=== PATIENT | female | born 2000 | race Caucasian/White ===

== ENCOUNTER 2025-06-08 14:22 | Outpatient (RCR) | payer OTHER, SELFPAY ==
--- NOTE | ~2025-06-08 | US_ITS ---
EXAMINATION: US OB BPP wo non-stress DATE: 06/08/2025 16:34 INDICATION: Cholestasis. Third trimester . TECHNIQUE: Real-time pelvic ultrasound was performed. The interpreting radiologist was not present for the study. COMPARISON: None. FINDINGS: There is a single living fetus in vertex presentation. The placenta is fundal and not low-lying. heart rate is 144 beats per minute (bpm). Normal amniotic fluid index of 21.9 cm (5th%-95%: 8.6-24.2 cm at 33 weeks estimated gestational age) . Biophysical profile performed by the technologist: breathing (30 sec sustained breathing in 30 minutes): 2 out of 2 movement (3 gross body movements in 30 minutes): 2 out of 2 tone (one episode of wlljhub-olqtvrtco-lgpzyaa limb movement): 2 out of 2 Amniotic fluid pocket (2 cm): 2 out of 2 Total score: 8 out of 8 IMPRESSION: 1. Single living fetus in vertex presentation with heart rate of 144 bpm. 2. Biophysical profile 8 out of 8. 3. Normal amniotic fluid index of 21.9 cm Reviewed, dictated and finalized at location A.
[2025-06-08 15:56] VITALS: BP 114/64; PULSE 96
== END 2025-07-18 17:46 | disposition other institution (70) ==
LOC: ANHOBOP 14:22
PROVIDERS: Visit Provider Obstetrics & Gynecology
DX: O26.643 Intrahepatic cholestasis of pregnancy, third trimester (principal); Z3A.34 34 weeks gestation of pregnancy
CPT/HCPCS: 59025; 76819

== ENCOUNTER 2025-07-10 05:33 | Inpatient (IN) | payer OTHER, SELFPAY ==
[2025-07-10] VITALS (51 sets, daily range): BP systolic 90–167; BP diastolic 43–114; PULSE 54–103; RESP 14–20; TEMP 36.2–36.7; O2SAT 98–100; BMI 37.5
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
--- NOTE | 2025-07-10 06:12 | LDADM ---
This patient, Grace Salinas, was admitted to Labor/Delivery/Recovery 120 on 07/10/25 at 05:33. Plans for labor, pain management and were discussed with patient. Patient/family oriented to hospital policies and general routines including ID bracelet, bed and alarms, visiting hours, pain management, procedures, bathroom and other care routines, personal items, smoking policy, room service/diet and guest tray routines, infant security routines, and visiting hours. Patient/Family are encouraged to report perceived risks to care and to ask questions if they do not understand what they are told or what they should do. See OBIX for further documentation.
[2025-07-10 06:23] LABS: Hematocrit 32.3 % (37.0-47.0); Hemoglobin 10.7 g/dL (12.0-15.0); Immature Granulocyte Percent A 0.3 % (0-0.5); Lymphocytes Absolute Auto 1.97 K/mm3 (0.9-3.2); Mean Corpuscular HGB Conc 33.1 g/dl (32-36); Mean Corpuscular Hemoglobin 30.7 pg (26-34); Mean Corpuscular Volume 92.8 fl (80-100); Nucleated Red Blood Cells Absolute Auto 0.000 K/mm3 (0.0-0.012); Nucleated Red Blood Cells Perc 0.0 % (0.0-0.2); Platelet Count Result 227 k/mm3 (150-375); Red Blood Count 3.48 M/mm3 (4.2-5.4); White Blood Count 7.6 K/mm3 (4.5-10.0)
[2025-07-10] MEDS: ACETAMINOPHEN 500 MG TABLET 1000 MG PO ×3 (06:24→18:59)
[2025-07-10] MEDS: LACTATED RINGERS 1,000 ML 125 ML IV CONT (06:29)
[2025-07-10 07:23] LABS: Syphilis IgG/IgM Antibody Non-Reactive (Nonreactive)
[2025-07-10] MEDS: LACTATED RINGERS 1,000 ML 999 ML IV CONT (07:23)
[2025-07-10] MEDS: ONDANSETRON INJ 4 MG/2 ML VIAL IV PUSH (07:23)
[2025-07-10] MEDS: FAMOTIDINE 20 MG/2 ML VIAL IV PUSH (07:24)
--- NOTE | 2025-07-10 07:25 | P.HP_ITS ---
H&P: HPI History of Present Illness Date/Time: 07/10/25 07:25 Chief Complaint: Term Narrative: 25-year-old multiparous female at 39 weeks gestation with previous delivery. Agreed for repeat delivery. She understands risks, benefits, and alternatives. She has completed informed consent process is ready to proceed. The patient understands the details of the procedure. The procedure has been explained in detail. She understands the risks. She understands that injuries may occur that result in hospitalization, more surgery, and severe illness. She understands risk of hemorrhage and infection. She denies any chest pain or shortness of breath. She denies any nausea, vomiting, fever, chills. Review of Systems Review of Systems: All systems reviewed & are unremarkable except as noted in HPI and below Constitutional: Constitutional: Denies chills, Denies fatigue, Denies fever(s) and Denies weakness Eyes: Eyes: Denies blurry vision, Denies change in vision, Denies loss of peripheral vision, Denies loss of vision, Denies other visual disturbances and Denies eye pain ENT: Denies vertigo, Denies dizziness, Denies hearing loss, Denies mouth pain, Denies nasal obstruction, Denies neck mass and Denies neck pain Cardiovascular: Cardiovascular: Denies chest pain, Denies diaphoresis, Denies syncope, Denies leg edema and Denies dyspnea Respiratory: Respiratory: Denies chest congestion, Denies cough, Denies hemoptysis, Denies dyspnea and Denies wheezing Gastrointestinal: Gastrointestinal: Denies abdominal pain, Denies constipation, Denies diarrhea, Denies nausea and Denies vomiting Genitourinary: Genitourinary: Denies hematuria, Denies change in libido, Denies nocturia, Denies genital lesions, Denies flank pain and Denies urinary ur gency Musculoskeletal: Musculoskeletal: Denies abnormal gait, Denies back pain, Denies myalgias, Denies arthralgias, Denies joint swelling, Denies muscle weakness and Denies neck pain Integumentary/Breasts: Skin/Breast: Denies swelling, Denies breast pain, Denies breast mass, Denies dry skin, Denies nipple discharge, Denies unusual bruising and Denies jaundice Neurologic: Denies Neuro-related abnormal movements, Denies Abnormal speech present, Denies abnormal gait, Denies behavioral changes, Denies confusion, Denies vertigo, Denies dizziness, Denies syncope, Denies loss of vision, Denies memory loss, Denies convulsions and Denies weakness Psychiatric: Psychiatric: Denies abnormal sleep pattern, Denies behavioral changes, Denies change in libido, Denies confusion, Denies depression, Denies anhedonia and Denies memory loss Endocrine: Endocrine: Reports no additional endocrine complaints, Denies change in libido and Denies fatigue Hematologic/Lymphatic: Hematologic/Lymphatic: Reports no additional hematologic/lymphatic complaints Allergic/Immunologic: Allergic/Immunologic: Reports no additional allergic/immunologic complaints and Denies wheezing [facility] Family History Family History (Updated 07/09/25 @ 14:01 by Tootie Chinchilla RN) Other No pertinent family history Social History Social History Years smoked: 4 Smoking status: Former smoker Tobacco type: cigarettes Substance use: current Lack of Transportation: No Lack of Food: Never True Current Housing: I Have Housing Concerned About Future Housing: No Difficulty Paying Gas/Electric Bills: No Difficulty Paying for Meds: No Currently Unemployed: No Education: High School Diploma/GED Difficulty w/ Childcare or Family Care: No Spiritual care concerns: No Meds Home Medications and Allergies Home Medications ?Medication ?Instructions ?Recorded ?Confirmed ?Type vit no.95-ferrous 1 tablet PO DAILY 07/09/25 07/10/25 History fumarate 28 mg-folic acid 800 mcg tablet () ursodiol 300 mg capsule 300 mg PO BID 07/09/2507/10 History Allergies Allergy/AdvReac Type Severity Reaction Status Date / Time metoclopramide (From Reglan) Allergy Severe Vomiting Verified 07/10/25 06:15 latex Allergy Intermediate Rash Verified 07/10/25 06:15 Vital Signs Vital Signs - 24 hr 07/10/25 05:36 07/10/25 06:18 07/10/25 06:21 Temperature Pulse Rate 97 Blood Pressure 123/75 Pulse Oximetry 99 Oxygen Delivery Room Air 07/10/25 06:23 07/10/25 06:24 Temperature 97.5 F L Pulse Rate Blood Pressure Pulse Oximetry 99 Oxygen Delivery Exam Const: General: cooperative, healthy appearing, comfortable and no acute distress Orientation/consciousness: oriented to person, oriented to place and oriented to time HENMT: Head: normal to inspection Ears: external ears normal Face/Nose/Sinus: Normal external nose present and normal facial exam Face and sinus: normal facial exam Eyes: General: appearance normal, both eyes and all related structures Neck: Neck: normal visual inspection, trachea midline and supple Resp: Auscultation: clear to auscultation bilaterally, no crackles, no rales, no rhonchi and no wheezes Cardio: Rate: regular rate Rhythm: regular rhythm Heart sounds: no click, no murmurs and no rubs GI: GI Palp: No abdominal tenderness, No Soft to palpation, No Tenderness to palpation present (GI) and No Palpable mass present Auscultation: normal bowel sounds Skin: General skin exam: normal color and no rashes or lesions noted Neuro: General: oriented to person, oriented to place and oriented to time Extrem: General: normal to inspection, no joint enlargement, no clubbing, cyanosis or edema, no pedal edema and no calf tenderness Psych: Appearance: grossly normal Mental Status: mental status grossly normal Speech and movement: Normal speech and movement present H&P: Results Labs Labs: Short CBC 07/10/25 Range/Units 05:49 WBC 7.6 (4.5-10.0) K/mm3 Hgb 10.7 L (12.0-15.0) g/dL Hct 32.3 L (37.0-47.0) % Plt Count 227 (150-375) k/mm3 Assessment and Plan Assessment and plan (1) Previous section: Code(s): Z98.891 - History of uterine scar from previous surgery Status: Acute Plan 25-year-old multiparous female at 39 weeks gestation with previous delivery. Agreed for repeat delivery. She understands risks, benefits, and alternatives. She has completed informed consent process is ready to proceed.
--- NOTE | 2025-07-10 07:27 | WPDHPUPDATE1 ---
History and Physical Update Update Date/Time: 07/10/25 07:27 History and Physical has been reviewed, including an updated exam of the patient. There are NO changes in the patient's condition. Risks, benefits, and alternatives have been discussed and questions answered. Patient agrees to proceed with procedure.
--- NOTE | 2025-07-10 07:30 | WPDANESEPPF ---
Anes - Initial Pre Proc Eval Procedure: Operation Date: 07/10/25 07:30 Proposed Procedures p Repeat Section - Isaiah Shultz MD Date/Time: 07/10/25 07:30 Surgeon: Isaiah Shultz MD Pre Op Diagnosis: Patient Data Age: 25 Gender: F Height: 1.57 m Weight: 93.2 kg Last Vital Signs Temp 97.5 F L 07/10/25 06:24 Pulse 97 07/10/25 06:21 BP 123/75 07/10/25 06:21 Pulse Ox 99 07/10/25 06:23 O2 Del Method Room Air 07/10/25 05:36 Allergies Allergy/AdvReac Type Severity Reaction Status Date / Time metoclopramide (From Reglan) Allergy Severe Vomiting Verified 07/10/25 06:15 latex Allergy Intermediate Rash Verified 07/10/25 06:15 Home Medications ?Medication ?Instructions ?Recorded ?Confirmed ?Type vit no.95-ferrous 1 tablet PO DAILY 07/09/25 07/10/25 History fumarate 28 mg-folic acid 800 mcg tablet () ursodiol 300 mg capsule 300 mg PO BID 07/09/25 07/10/25 History Laboratory Tests 07/10/25 05:49 WBC 7.6 K/mm3 (4.5-10.0) RBC 3.48 L M/mm3 (4.2-5.4) Hgb 10.7 L g/dL (12.0-15.0) Hct 32.3 L % (37.0-47.0) MCV 92.8 fl (80-100) MCH 30.7 pg (26-34) MCHC 33.1 g/dl (32-36) RDW 12.9 % (11.5-14.5) Plt Count 227 k/mm3 (150-375) MPV 8.5 fl (7.4-10.4) Immature Gran % (Auto) 0.3 % (0-0.5) Neut % (Auto) 66.0 % (45.5-73.1) Lymph % (Auto) 26.0 % (18.3-44.2) [place] % (Auto) 6.6 % (2.6-8.5) Eos % (Auto) 0.8 % (0-4.4) Baso % (Auto) 0.3 % (0.2-1.2) Lymph # (Auto) 1.97 K/mm3 (0.9-3.2) [place] # (Auto) 0.5 K/mm3 (0.1-0.6) Eos # (Auto) 0.1 K/mm3 (0-0.3) Baso # (Auto) 0.0 K/mm3 (0.0-0.1) Abs Immat Gran (auto) 0.02 K/mm3 (0.00-0.031) Absolute Neuts (auto) 5.0 K/mm3 (1.3-6.7) Absolute Nucleated RBC 0.000 K/mm3 (0.0-0.012) Nucleated RBC % 0.0 % (0.0-0.2) Syphilis IgG/IgM Ab Non-reactive (Nonreactive) Blood Type A Positive Antibody Screen Negative Patient hx anesthesia problems: none Family hx anesthesia problems: none Results Review: All pre-operative results and documents have been reviewed as part of the pre-operative evaluation. [facility] Family History Family History Other No pertinent family history Social History Social History Years smoked: 4 Smoking status: Former smoker Tobacco type: cigarettes Substance use: current Lack of Transportation: No Lack of Food: Never True Current Housing: I Have Housing Concerned About Future Housing: No Difficulty Paying Gas/Electric Bills: No Difficulty Paying for Meds: No Currently Unemployed: No Education: High School Diploma/GED Difficulty w/ Childcare or Family Care: No Spiritual care concerns: No Anes - Eval Final PreProcedure Day of Procedure 07/10/25 07:30 Patient weight: obese Lungs: normal air movement Airway: Mallampati scale class II Neurological: alert and oriented Last oral intake: >/= 8 hours ASA classification: II Emergent: no Anesthetic plan: proceed Anesthesia type and monitoring: regional spinal and standard monitoring Results Review: All pre-operative results and documents have been reviewed as part of the pre-operative evaluation. Plts normal. Informed Consent: The patient's anesthetic plan and its attendant risks and benefits were discussed with the patient/family/POA. Questions were solicited and answers provided to the satisfaction of the patient/family/POA.
[2025-07-10] MEDS: ceFAZolin 2 GM in SODIUM CHLORIDE 0.9% IV 50 ML 100 ML IVPB (07:35)
--- NOTE | 2025-07-10 08:37 | W.PM.OBCSD ---
OB - Delivery Note Procedure Delivery date: 07/10/25 Pre-op diagnosis: Previous Delivery Post-op Diagnosis: Same Procedure Performed: Repeat and Other Surgeon: Isaiah Shultz MD Anesthesia type: Spinal Description of Procedure/Findings: The patient was taken the operating room.? She was prepped and draped in dorsal supine position with a leftward tilt.? This was done after spinal anesthetic was applied.? A low-transverse skin incision was made and carried down till of the fascia with the knife.? The fascial incision was made with the knife.? The fascial incision was extended laterally with Prajapati scissors.? The fascia was tented upward superiorly and inferiorly the rectus muscles were dissected off bluntly.? The rectus muscles were the midline.? The preperitoneal fat and peritoneum were dissected open bluntly at the superior aspect of the rectus muscles.? The peritoneal incision was extended superior and inferior with good position of bladder.? The uterine incision was made with a scalpel down to the level of the amniotic cavity.? The amniotic cavity was entered bluntly.? The infant was delivered.? The cord was clamped and cut and the infant was handed off to waiting pediatric staff.? Cord bloods were obtained.? The placenta was removed manually.? The uterus was exteriorized.? The uterus was cleared of all clots, debris and membranes.? The uterus was closed in 0 Vicryl running lock fashion.? An imbricating over a was placed along the incision line as well.? The uterus was returned to the abdomen.? The gutters were cleared of all clots and debris.? The fascia was closed with 0 Vicryl running fashion.? The subcutaneous tissue was irrigated pinpoint bleeders were cauterized.? The skin was closed with subcuticular absorbable liudmila.? The skin incision line was covered with glue.? The patient tolerated the procedure well.? She has taken recovery room in stable condition.? Sponge lap and needle counts were correct x2.? Estimated Blood Loss: 400 Pathology: None sent Complications: No immediate complications Condition: Stable Disposition: Floor
[2025-07-10] MEDS: KETOROLAC 15 MG/ML VIAL (*BKC) IV PUSH ×3 (08:59→19:00)
[2025-07-10] MEDS: LIDOCAINE 5% PATCH 1 PATCH TRANSDERM (09:16)
[2025-07-10] MEDS: OXYTOCIN 30 UNITS/NS 500 ML 30 UNITS/500 ML BAG 125 UNITS IV CONT (10:54)
[2025-07-10] MEDS: SIMETHICONE 80 MG TAB.CHEW PO ×2 (12:59→19:00)
[2025-07-10] MEDS: DEXTROSE 5%/0.45% SOD CHL 1,000 ML 125 ML IV CONT (15:21)
--- NOTE | 2025-07-10 16:40 | PC.NURSE ---
1520. Breast pump provided due to level 2. Instructions given on cleaning, care, usage, that there should be no pain, pumping schedule for milk production, collection, and storage of human milk. Patient was assessed for correct placement, flange size, to pump for comfort and nipple stretching/stimulation for adequate milk production every 3 hours (8 times in 24 hours) 1-2 times at night. Parents are encouraged to record the pumping schedule on the feeding sheet.?Mother voiced understanding of the education shared along with mom/baby guide and the pump measurement, flange fit handout for additional resource information. Reported to the Primary RN.
[2025-07-10] MEDS: DOCUSATE SODIUM 100 MG CAPSULE PO (19:00)
[2025-07-11] MEDS: KETOROLAC 15 MG/ML VIAL (*BKC) IV PUSH (00:52)
[2025-07-11] MEDS: ACETAMINOPHEN 500 MG TABLET 1000 MG PO ×4 (00:52→21:37)
[2025-07-11 03:55] VITALS: BP 114/68; PULSE 71; RESP 16; TEMP 36.4; O2SAT 99
[2025-07-11 04:36] LABS: Hematocrit 29.7 % (37.0-47.0); Hemoglobin 9.5 g/dL (12.0-15.0); Immature Granulocyte Percent A 0.3 % (0-0.5); Lymphocytes Absolute Auto 2.03 K/mm3 (0.9-3.2); Mean Corpuscular HGB Conc 32.0 g/dl (32-36); Mean Corpuscular Hemoglobin 30.1 pg (26-34); Mean Corpuscular Volume 94.0 fl (80-100); Nucleated Red Blood Cells Absolute Auto 0.000 K/mm3 (0.0-0.012); Nucleated Red Blood Cells Perc 0.0 % (0.0-0.2); Platelet Count Result 240 k/mm3 (150-375); Red Blood Count 3.16 M/mm3 (4.2-5.4); White Blood Count 7.2 K/mm3 (4.5-10.0)
--- NOTE | 2025-07-11 07:12 | P.PNOB_ITS ---
OB - PN: Subj Subjective Date/time seen: 07/11/25 07:12 Interval history: pp day 1 c/s doing well urinating w/o difficulty passing flatus OB - PN: Obj Data Labs 07/11/25 03:59 Labs: Laboratory Results - last 24 hr 07/10/25 07/11/25 05:49 03:59 WBC 7.2 RBC 3.16 L Hgb 9.5 L Hct 29.7 L MCV 94.0 MCH 30.1 MCHC 32.0 RDW 12.9 Plt Count 240 MPV 9.1 Immature Gran % (Auto) 0.3 Neut % (Auto) 64.1 Lymph % (Auto) 28.2 [place] % (Auto) 6.8 Eos % (Auto) 0.3 Baso % (Auto) 0.3 Lymph # (Auto) 2.03 [place] # (Auto) 0.5 Eos # (Auto) 0.0 Baso # (Auto) 0.0 Abs Immat Gran (auto) 0.02 Absolute Neuts (auto) 4.6 Absolute Nucleated RBC 0.000 Nucleated RBC % 0.0 Syphilis IgG/IgM Ab Non-reactive Rubella IgG Antibody Cancelled Blood Type A Positive Antibody Screen Negative OB - PN A/P Plan day: 1 Plan: routine care Time Spent With Patient Time: Total time spent is greater than 50% in coordination of care (as documented) at patient's floor/unit and/or counseling patient: Review of Systems 2 Review of Systems: All systems reviewed & are unremarkable except as noted in HPI and below Exam 2 Const: General: cooperative, healthy appearing and comfortable Chest: Chest palpation & inspection: normal inspection of the chest Resp: Effort & Inspection: normal respiratory effort GI: Other: incision CDI Back/Spine/Pelvis: Back: no CVA tenderness Skin: General skin exam: normal color Extrem: General: normal to inspection
[2025-07-11 07:20] VITALS: BP 140/83; PULSE 87; RESP 18; TEMP 36.8; O2SAT 100
--- NOTE | 2025-07-11 08:21 | PC.NURSE ---
On 07/11/25, the student, Valencia Fraire, provided care and completed [facility] documentation on this patient. I have reviewed the student's documentation and agree with the findings.
[2025-07-11] MEDS: DOCUSATE SODIUM 100 MG CAPSULE PO ×2 (08:58→15:22)
[2025-07-11] MEDS: IBUPROFEN 600 MG TABLET PO ×3 (08:59→21:38)
[2025-07-11] MEDS: SIMETHICONE 80 MG TAB.CHEW PO ×4 (09:04→19:36)
[2025-07-11] MEDS: MULTIVIT/MIN/PREN/FOL AC/IRON TABLET 1 TAB PO (09:06)
--- NOTE | 2025-07-11 11:51 | WPDANLDNPN2 ---
Anes-Prog Note L&D-Neuraxial Date/Time: 07/11/25 11:51 Patient feedback: Patient satisfied with post-operative pain management.
--- NOTE | 2025-07-11 11:51 | WPDANLDPN2 ---
Anes-Prog Note L&D Date/Time: 07/11/25 11:51 Neuro status: Neuro function grossly intact. Cardiovascular status: normal Respiratory status: normal Airway patency: baseline Mental status: baseline Post-Op hydration status: normal Vital Signs: Last Vital Signs Temp 36.8 C 07/11/25 07:20 Pulse 87 07/11/25 07:20 Resp 18 07/11/25 07:20 BP 140/83 07/11/25 07:20 Pulse Ox 100 07/11/25 07:20 O2 Del Method Room Air 07/10/25 19:15 Pain score (VAS): 0 I/O: Intake & Output 07/10/25 07/11/25 07/11/25 23:59 07:59 15:59 Intake Total 570.8 400 240 Output Total 900 Balance -329.2 400 240 Post-procedural complaints: none Patient feedback: Patient satisfied with anesthetic care.
[2025-07-11 19:23] VITALS: BP 114/75; PULSE 90; RESP 16; TEMP 36.7; O2SAT 100
[2025-07-11] MEDS: LIDOCAINE 5% PATCH 1 PATCH TRANSDERM (19:36)
[2025-07-12] MEDS: IBUPROFEN 600 MG TABLET PO ×2 (03:11→09:29)
[2025-07-12] MEDS: ACETAMINOPHEN 500 MG TABLET 1000 MG PO ×2 (03:11→09:30)
[2025-07-12 07:55] VITALS: BP 106/69; PULSE 80; RESP 18; TEMP 36.4; O2SAT 98
[2025-07-12 08:15] VITALS: PULSE 80; RESP 18; O2SAT 98
[2025-07-12] MEDS: SIMETHICONE 80 MG TAB.CHEW PO ×2 (08:21→12:35)
[2025-07-12] MEDS: MULTIVIT/MIN/PREN/FOL AC/IRON TABLET 1 TAB PO (08:21)
[2025-07-12] MEDS: DOCUSATE SODIUM 100 MG CAPSULE PO (08:21)
--- NOTE | 2025-07-12 08:44 | PCCCNOTE ---
Wax Pot Tender met with patient at bedside. Patient was present holding her baby girl while speaking with CC. Patient's significant other was also present in the room. Patient reports this being her 4th child. Patient reports having children ages 7, 4, 2 and now a . Patient reports having everything she needs at home for the , listed as diapers, bassinet and other simple items. Patient reports breast feeding at this time but may later try formula. Patient reports no DCFS history or involvement. Patient reports already having an established PCP through Dr. Werner. Patient and significant other reports having plenty of family support on both sides of the family. Patient was alert and oriented X's 4. Patient reports a history in the past of THC use but none recent with or while . Patient denies previous substance treatment as well. There are no other concerns at this time with patient and baby. cellar worker will sign off at this time.
--- NOTE | 2025-07-12 13:04 | P.DS_ITS ---
DS: Admitting Diagnosis Discharge Date 07/12/2025 Admitting Diagnosis Term DS: Discharge Diagnosis Discharge Diagnosis (1) Previous section: Code(s): Z98.891 - History of uterine scar from previous surgery Status: Acute OB - DS: Summary OB Procedures : None OB Procedures Intrapartum: OB Procedures: : None Peripartum Data Procedures: Procedures Operation Date: 07/10/25 07:30 Actual Procedure Side Surgeon p Repeat Section Not Applicable Isaiah Shultz MD Time Spent with Patient Time attestation: Total time spent providing and/or coordinating discharge services: Discharge Plan Discharge Discharging Clinician: Isaiah Shultz Patient Disposition: Home Activity: pelvic rest Diet: regular Patient Instructions: Antibiotic Form Patient Language: Polish Stand Alone Forms: General Discharge Information Follow-up/Referrals: Isaiah Shultz MD [Physician, BRUSH LOADER AND HANDLE ATTACHER] Discharge Medications: New hydrocodone-acetaminophen 5-325 mg tablet 1 - 2 tablet PO Q6H PRN (Reason: pain) Qty: 25 0RF Continued PNV no.95-ferrous fumarate-FA [] 28 mg iron- 800 mcg tablet 1 tablet PO DAILY Discontinued ursodiol 300 mg capsule 300 mg PO BID Date of admission: 07/10/25 05:33 Primary Care Provider: UNKNOWN,DOCTOR Admitting Provider: Isaiah Shultz Attending physician on admission: Isaiah Shultz Condition: Stable
--- NOTE | 2025-07-12 13:04 | P.PNOB_ITS ---
OB - PN: Subj Subjective Date/time seen: 07/12/25 13:04 Interval history: pp day 1 c/s doing well urinating w/o difficulty passing flatus Patient comments: no complaints, pain well controlled, incisional pain, tolerating diet and flatus present OB - PN: Obj Data Labs 07/11/25 03:59 OB - PN A/P Plan day: 2 Plan: routine care Comments: POD#2 LTCS - no problems, Time Spent With Patient Time: Total time spent is greater than 50% in coordination of care (as documented) at patient's floor/unit and/or counseling patient: Exam 2 Const: General: comfortable, no acute distress and alert Resp: Effort & Inspection: normal respiratory effort Auscultation: no crackles, no rales and no rhonchi Cardio: Rate: regular rate Heart sounds: no click, no murmurs and no rubs GI: Inspection: non-distended Auscultation: normal bowel sounds Other: Incision - CDI Extrem: General: normal to inspection, no pedal edema and no calf tenderness
== END 2025-07-12 15:35 | disposition home or self-care (01) | DRG 540 ==
LOC: ANHLDR 05:35 → ANHOB2 11:32
PROVIDERS: Admitting Provider Obstetrics & Gynecology; Visit Provider Obstetrics & Gynecology
PROC: 10D00Z1 Extraction of Products of Conception, Low, Open Approach (ICD-10-PCS; CPT 59514; principal; 2025-07-10 07:30)
DX: O26.643 Intrahepatic cholestasis of pregnancy, third trimester (principal); Z37.0 Single live birth; Z3A.37 37 weeks gestation of pregnancy; O34.211 Maternal care for low transverse scar from previous cesarean delivery; O99.323 Drug use complicating pregnancy, third trimester; F19.90 Other psychoactive substance use, unspecified, uncomplicated
CPT/HCPCS: 36415; 85025; 86593; 86762; 86850; 86900; 86901; J0690; A9270; J1200; J1885; J2274; J2405; J2590; J3480; J7120

== ENCOUNTER 2025-08-22 02:14 | Day surgery (SDC) | payer OTHER, SELFPAY ==
--- NOTE | 2025-08-14 15:28 | SUR.PREOP ---
[facility] has started construction of its new state of the art ER which will open Spring 2026. With this, we anticipate parking may be a challenge for some our surgical patients and families. Parking spaces are limited but are available for all Surgical, obstetrics, and ER patients sharing this lot. If you arrive and find you are having a hard time finding a parking space, please note that we understand the challenges, please drive around the hospital and park near Hospital Entrance 1. When you enter this entrance, you can ask a volunteer to direct or take you back to the surgical waiting area to check in. We appreciate everyone?s understanding of these expected challenges while we build for your future. Report to the Outpatient Waiting Room, entrance under the green pavilion located off [address], at time __10AM___ on date _08/22/25__. Planned Procedure Time: __12PM___.? Time changes happen often and if your time is changed the preop area will call you the afternoon before. - You and your visitor will be asked to self-screen and do not enter if you have any COVID symptoms. Please call surgeon if you need to reschedule. - A mask is optional within the hospital at this time. Patients may have clear liquids (water, carbonated beverages, clear teas, apple juice) until 3 hours prior to surgery with a maximum of 20 ounces. - No food from midnight until time of surgery and no smoking, or chewing tobacco (or any form of nicotine). No chewing gum, candy or mints. Take only the following medications with a SIP of water on the morning of surgery: ___hydrocodone/acetaminophen if needed____ DO NOT STOP ANY OF YOUR OTHER PRESCRIPTION MEDICATIONS PRIOR TO SURGERY EXCEPT THE FOLLOWING Hold all vitamins and supplements for 3 days per anesthesiologist. Medications to discontinue per physician __n/a___ Date to take last dose of vitamins_08/18/25_ Please no make-up, nail lebanese, hairspray, perfume, deodorant, or body powder the day of surgery.? No jewelry (including any body piercings) or valuables the day of surgery, leave them at home.? Please take a shower or bath the night before, or the morning of, surgery with an antibacterial soap.? Wear comfortable, loose fitting clothing.? - Jewelry must be removed prior to entering the operating room.? Rings and piercings that are not removed may be cut off. - The hospital will not accept responsibility for valuables.? - Please leave all valuables, including medications, at home the day of surgery. If you are going home after surgery, a licensed pile driver operator must drive you home.? - NO public transportation without another adult if you receive anesthesia. - We recommend that an adult stay with you for 24 hours following discharge. - We also recommend that you do not drive, make important decision, drink alcoholic beverages, or take any drugs that were not prescribed by your health care provider for at least 24 hours after your discharge time. Follow any additional instructions given to you from your surgeon. Telephone instructions given to __Grace___and asked if any additional questions and then verbalized understanding. Patient advised to call surgeon office or pre surgery nurse liaison [phone] if any additional questions.
[2025-08-14 15:31] VITALS: BMI 36.6
--- NOTE | 2025-08-22 | S_PTH ---
PATIENT: Grace Salinas LOC: [facility] U#:[id number] AGE/SX: 25/F ROOM: RE08/22/[address]: Isaiah Shultz MD : 2000 BED: DIS: 08/22/2025 SPEC #: [id number] RECD: 08/22/25 13:21 STATUS: JUSTO REQ #: [id number] CHAYITO: 08/22/25 00:[address]: Isaiah Shultz DEPT: [facility] Surgical RECD BY: Zhane Ruiz Tissues: A - Fallopian Tube Bilateral Procedures: Gross and Microscopic Level 2 Hematoxylin and Eosin Stain
--- OUTSIDE RECORDS SUMMARY | 2025-08-22 02:17 | XMS_ITS | Encounter Summary ---
Author Organization [facility] Address [address] [place] [address] Care Team Providers Care Building Architect Name Role Phone Unavailable Primary Care Provider Unavailabl e Encounter Details Date Type Department Care Team (Late st Contact Info) Description 08/29/2020 Lab Requisition CLINICAL PATH LAB [address] [place] [address] Lorenzo Rockwell MD [address] [place] [address] Amenorrhea, unspecified Social History Tobacco Use Types Packs/Day Years Used Date Smoking Tobacco: Never Assessed Comments Unknown Sex and Gender Information Value Date Recorded Sex Assigned at Not on file Legal Sex Female 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 Gender Identity Not on file Sexual Orientation Not on file documented as of this encounter Plan of Treatment Not on file documented as of this encounter Procedures Procedure Name Priority Date/Time Associated Diagnosis Comments HCG, QUANTITATIVE Routine 08/29/2020 1:4 5 PM AUTO BODY SERVICE MECHANIC Amenorrhea, unspecified documented in this encounter Results * (ABNORMAL) HCG, quantitative (08/29/2020 1:45 PM AUTO BODY SERVICE MECHANIC) HCG, SERUM 31,853(H) <5 MIU/ML 08/30/2020 1:42 AM AUTO BODY SERVICE MECHANIC [facility] Comment: MALES AND NON FEMALES: <5 mIU/ml WEEKS GESTATION 0 TO 1 5 TO 50 mIU/ml 1 TO 2 50 TO 500 mIU/ml 2 TO 3 100 TO 5,000 mIU/ml 3 TO 4 500 TO 10,000 mIU/ml 4 TO 5 1,000 TO 50,000 mIU/ml 5 TO 6 10,000 TO 100,000 mIU/ml 6 TO 8 15,000 TO 200,000 mIU/ml 8 TO 12 10,000 TO 100,000 mIU/ml 2nd TRIMESTER 5,000 TO 30,000 mIU/ml 3rd TRIMESTER 5,000 TO 15,000 mIU/ml New reference interval implemented September 06, 2014 due to assay standardization to the World Health Organization (WHO) 5th International Standard for chorionic gonadotropin. Blood Venous blood specimen / Unknown 08/29/2020 1:45 PM AUTO BODY SERVICE MECHANIC 08/30/2020 12:46 AM AUTO BODY SERVICE MECHANIC us Lorenzo Rockwell MD LAB BLOOD ORDERABLES Final Resu lt [facility] [address] [address] ([facility]) [place] [address] documented in this encounter Visit Diagnoses Diagnosis Amenorrhea, unspecified documented in this encounter
--- OUTSIDE RECORDS SUMMARY | 2025-08-22 02:17 | XMS_ITS | Clinical Summary ---
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 Gender Identity Not on file Sexual Orientation Not on file Plan of Treatment Health Maintenance Due Date Last Done Comments HPV Vaccines (1 - 3-dose series) 2014 DTaP,Tdap,and Td Vaccines (1 - Tdap) 2018 Hepatitis B Vaccines (1 of 3 - 19+ 3-dose series) 2018 Cervical Cancer Screening 2020 COVID-19 Vaccine (1 - 2024-2 6 season) 2025 Influenza Vaccine (#1) 2025 Zoster Vaccines (1 of 2) 2049 RSV Vaccine 60+ and Patients (1 - 1-dose 75+ series) 2074 HIB Vaccines Aged Out No longer eligi ble based on patient's age to complete this topic Hepatitis A Vaccines Aged Out No long er eligible based on patient's age to complete this topic IPV Vaccines Aged Out No longer eligi ble based on patient's age to complete this topic Meningococcal ACWY Vaccine Aged Out N o longer eligible based on patient's age to complete this topic Meningococcal B Vaccine Aged Out No l onger eligible based on patient's age to complete this topic Pneumococcal Vaccine: Pediat rics (0 to 5 Years) and At-Risk Patients (6 to 49 Years) Aged Out No longer eligible b ased on patient's age to complete this topic RSV Pediatric <20 Months Aged Out No longer eligible based on patient's age to complete this topic
--- OUTSIDE RECORDS SUMMARY | 2025-08-22 02:17 | XMS_ITS | Data Portability ---
Author Organization [facility] [place] Address [address] [place] [address] Assessment No assessment recorded. Plan of Treatment Reminders Order Date Submit Date Provider Last Modified By Organization Details Last Modified Time Details Appointments SURG Salpingec terese 2024 10:30A Jorge L CORDERO MD Not available Not available Not available SURG POST OP 2024 10:30A Jorge L CORDERO MD Not available Not available Not available Lab None recorded. Referral None recorded. Procedures None recorded. Surgeries None recorded. Imaging non-stres s test 2024 025 [email or web address] [facility], [address], [place], [address], 07/06/2025 16:34:16 US, obstetric , follow-up 2024 025 [email or web address] [facility], [address], [place], [address], 07/09/2025 18:29:15 US, obstetric , biophysic al profile + non-stres s test 2024 025 [facility], [address], [place], [address], 07/07/2025 09:21:01 Medication Orders None recorded. Patient TargetsNo targets recorded. Patient InstructionsNo instructions recorded. Reason for Referral None Reported. Results Created Date Observation Date Name Description Value Unit Range Abnormal Flag Note LastModifiedBy Organization Detail LastModifiedTime 06/29/20 25 06/29/2025 BILE ACIDS , TOTAL bile acids, total 4 umol/ L 0-10 Test Perfo rmed by: Mark arroyo rn [facility] [address] [place] [address] Not Available [facility] (Lab) [address] [facility], [place], [address], 07/02/2025 14:56:37 06/29/2006/29/2025 CULTU RE: GROUP B STREP SCREE N, REFLE X SUSCE PTIBI LITY result report SEE RESULT S BELOW Test: Cultu re: Group B Strep , Refle x Susce ptibi lity ([facility]/ [facility] ) Speci men Sourc e: Vagin a/Rec rebecca Speci men Type: Vagin al/Re ctal Speci men Date: 2024 1311 Resul t Date: 2024 1353 Resul t Statu s: Final resul t Abnor mal: No Resul ting Lab: [facility] [address] [facility] [address] Tel: CULTU RE ----- ----- ----- --- No Group B strep isola sylwia at 2 days (tripp ctive broth enhan cemen t) Not Available [facility] (Lab) [address] [facility], [place], [address], 07/02/2025 14:56:38 06/08/20 25 non-s tress test No observ ation record ed. [facility] [address], [place], [address], 06/08/2025 09:35:42 06/08/2006/08/2025 US, obste tric, follo w-up No observ ation record ed. [address], [place], [address], 06/12/2025 09:04:42 0806/08/2025 non-s tress test No observ ation record ed. [email or web address] Not Available 2024 12:06:00 06/15/2006/15/2025 non-s tress test No observ ation record ed. [email or web address] [facility] [address], [place], [address], 06/15/2025 22:55:30 06/15/2006/15/2025 US, obste tric, follo w-up No observ ation record ed. [facility] [address], [place], [address], 06/15/2025 17:05:10 06/15/2006/15/2025 US, obste tric, bioph ysica l profi le + non-s tress test No observ ation record ed. [facility] [address], [place], [address], 06/15/2025 17:05:21 06/15/20 25 06/15/2025 US, obste tric, follo w-up No observ ation record ed. [email or web address] [address], [place], [address], 06/19/2025 15:25:51 06/22/20 25 06/22/2025 US, obste tric, bioph ysica l profi le + non-s tress test No observ ation record ed. [email or web address] [address], [place], [address], 06/25/2025 10:51:52 06/22/2006/22/2025 US, obste tric, bioph ysica l profi le + non-s tress test No observ ation record ed. [facility] [address], [place], [address], 06/22/2025 17:22:27 06/27/20 25 06/27/2025 non-s tress test No observ ation record ed. [address], [place], [address], 06/27/2025 12:09:10 06/27/20 imagi ng/di agnos tic resul t No observ ation record ed. SULEMAN Not Available 2024 11:02:05 06/29/2006/29/2025 US, obste tric, follo w-up No observ ation record ed. [email or web address] [address], [place], [address], 07/03/2025 06:56:13 06/29/2006/29/2025 US, obstgardenia tric, bioph ysica l profi le + non-s tress test No observ ation record ed. [email or web address] [address], [place], [address], 06/29/2025 17:08:26 06/29/2006/29/2025 non-s tress test No observ ation record ed. [address], [place], [address], 06/29/2025 17:55:01 06/29/20 non-s tress test No observ ation record ed. [address], [place], [address], 06/29/2025 17:55:02 07/06/20 25 07/06/2025 US, obste tric, follo w-up No observ ation record ed. [email or web address] [address], [place], [address], 07/10/2025 19:00:48 07/06/20 25 07/06/2025 US, obste tric, follo w-up No observ ation record ed. [facility] [address], [place], [address], 07/06/2025 16:55:33 07/06/20 25 07/06/2025 US, obste tric, bioph ysica l profi le + non-s tress test No observ ation record ed. [facility] [address], [place], [address], 07/06/2025 16:55:43 07/06/20 25 07/06/2025 non-s tress test No observ ation record ed. [facility] [address], [place], [address], 07/09/2025 23:21:25 07/06/20 non-s tress test No observ ation record ed. [email or web address] [facility] [address], [place], [address], 07/09/2025 23:21:25 Result Notes None recorded. Problems Name Problem SNOMED Code Status Onset Date Resolution Date Notes Provider Name and Address Organization Details Recorded Time 39139562 Completed 202407/18/2025 Ilsa Tyler [facility] 18:08:06 Past history of section 299544437 Completed 2024 X3 Isaiah Cordero MD [address], [place], [address], [facility] 16:40:44 Cholestas is of 696227595 Completed 2024 Isaiah Cordero MD [address], [place], [address], [facility] 11:27:49 Problem Notes None recorded. Procedures Surgical History Date Name Laterality Status Provider Name and Address Organization Details Recorded Time 5 SECTION (SURG) completed [facility] 07/17/2025 11:09:12 5 SECTION (SURG) completed [facility] 07/17/2025 11:09:01 2 Caesarean Section completed [facility] 02/12/2025 16:02:04 1 Caesarean Section completed [facility] 02/12/2025 16:01:57 8 Caesarean Section completed [facility] 02/12/2025 16:01:41 Imaging Results None recorded. Procedure Notes None recorded. Medical Equipment None Reported. Allergies Allergen ID Allergen Name Allergen Category Reaction Reaction Severity Criticality Documentation Date Start Date Code Code System Note Provider Name and Address Organization Details Recorded Time 34606 Reglan medicatio n dizziness other vomiting moderate moderate severe high 06/20/2025 9230 RxNorm nancy , viktoriya heade d , sever e vomit ing ,clam my Ghada Valeriano [facility] 5 10:51:25 Medications Name Sig Start Date Stop Date Status Note LastModified by Organization Details LastModified Time amoxicillin 500 mg capsule TAKE ONE CAPSULE FOUR TIMES DAILY FOR 7 DAYS 05/11 completed Not Available Not Available Not Available triamcinolo ne acetonide 0.5 % topical cream APPLY thin layer TO THE affected AREA topically TWICE DAILY 08/13 completed Not Available Not Available Not Available hydrocodone 5 mg-acetamin ophen 325 mg tablet TAKE 1 TO 2 TABLETS BY MOUTH EVERY 6 HOURS NEEDED FOR PAIN 08/13 completed Not Available Not Available Not Available ursodiol 300 mg capsule TAKE ONE CAPSULE BY MOUTH TWICE DAILY 08/13 completed Not Available Not Available Not Available Vitals Date Recorded Body weight Body weight Body mass index (BMI) Body height Systolic And Diastolic Systolic And Diastolic Provider Name and Address Organization Details Last Updated DateTime 5 51503.4 3585 g 96537.4 3585 g 38.1 kg/m2 156.21 cm 104/69 mm[Hg] 104/69 mm[Hg] Dorothy Langston [facility] 16:24:26 Date Recorded Body height Body mass index (BMI) Body weight Systolic And Diastolic Provider Name and Address Organization Details Last Updated DateTime 07/18/2025 156.21 cm 36.2 kg/m2 47752.51 g 139/89 mm[Hg] Ilsa Tyler [facility] 07/18/2025 18:07:01 Date Recorded Body height Body mass index (BMI) Body weight Systolic And Diastolic Provider Name and Address Organization Details Last Updated DateTime 08/13/2025 156.21 cm 37.2 kg/m2 69897.47 g 117/78 mm[Hg] Berkley Jamiler [facility] 08/13/2025 14:27:57 Social History Question Answer Notes LastModified by Organizat ion Details LastModified Time In The 14 Days Before Symptom Onset, Have You Had Close Contact With A Laboratory-confirmed COVID-19 While That Case Was Ill? No Information not available 02/12/2025 In The 14 Days Before Symptom Onset, Have You Had Close Contact With A Person Who Is Under Investigation For COVID-19 While That Person Was Ill? No Information not available 02/12/2025 Have You Been To An Area Known To Be High Risk For COVID-19? No Information not available 02/12/2025 Sex: Unknown Functional Status None recorded. Mental Status None recorded. Family History Relationship Description Onset Age of this Age Resolved Age Notes LastModified by Organization Details LastModified Time Father No current problems or disability Not available 02/12 16:01:02 Mother No current problems or disability Not available 02/12 16:01:02 Medical History Condition Response Allergies (Food, seasonal, environmental ) N Other N Drug/Latex Allergies/Reactions N Breast Cancer N Blood Transfusion N Lung Disease N Dermatologic Disorders N Defects or Inherited Disease N Breast Problem N Gestational Diabetes N Hematologic disorders N Anesthesia Complications N History of STI N Deep Vein Thrombosis N Polycystic ovary syndrome N Anxiety Disorder N Autoimmune disease N Arthritis N Polyps N Infertility N History of abnormal pap N Acid Reflux (GERD) N Cancer N Varicosities N Stroke N Neurologic/Epilepsy N Endometriosis N High Cholesterol N Headaches N Fibromyalgia N Kidney Disease N Heart Problems N Thyroid Problems N Kidney or Bladder Problems N GI Problems N Eating Disorder N Anemia N Art (IVF or FET) N Psychiatric Illness N Ovarian Cancer N Diabetes N Pulmonary (TB, Asthma) N Hepatitis/Liver Disease N No Past Medical History Y Eczema N Urinary Tract Infection N Abuse/Domestic Violence N Asthma N Trauma/Violence N Depression/ depression N Heart Disease N Pre-Eclampsia N Hypertension N Osteoporosis N Thrombophilias N Gynecological History Statement/Question Response Abnormal Pap N Flow Light Date of LMP 10/18/2024 Was last menstrual period normal Y STIs/STDs N HPV Vaccine N Current Control Method None Are cycles usually normal Y Sexually Active? Y Menses Monthly Y Age of first menstrual cycle 11 Sexual Problems? N Desired Control Method Sterilizati on LMP Approximate Obstetrics History GPAL:G 5 P 4 0 1 4 Type Value Full Term 4 Spontaneous 1 Living 4 Total 5 Past Encounters Encounter ID Performer Location Encounter Start Date Encounter Closed Date Diagnosis/Indication Diagnosis SNOMED-CT Code Diagnosis ICD10 Code Diagnosis IMO Codes Diagnosis Note [id number] Isaiah Cordero MD [facility] [address] [place] [address] 01/05/2025 10:24:52 01/05/2025 11:09:23 screening 093899033 Z36.82 Z36.87 [id number] [facility] [address] [address] 01/05/2025 10:39:49 01/05/2025 11:47:57 Amenorrhea 61573705 N91.2 pap up to date per ptreviewed USplan 20 week anatomy scaneducat ion and precaution s Gestation period, 12 weeks 48651007 Z3A.12 [id number] Isaiah Cordero MD [facility] [address] [address] 02/12/2025 15:28:34 02/12/2025 16:57:48 care status 129640054 Z34.82 [id number] MD [facility] [address],[place] [address] 03/16/2025 14:02:20 03/19/2025 09:34:59 [id number] MD [facility] [address],[place] [address] 03/16/2025 14:02:58 03/16/2025 15:58:17 care status 837254171 Z34.82 [id number] MD [facility] [address],[place] [address] 04/16/2025 12:07:01 04/16/2025 12:39:42 Pruritic rash 13957323 L28.2 458987 care status 24 1001191 Z34.82 [id number] MD [facility] [address],[place] [address] 05/11/2025 10:36:53 05/11/2025 11:56:17 Cholestasis of 108205851 O26.643 [id number] MD [facility] [address],[place] [address] 05/28/2025 15:17:37 05/28/2025 16:28:44 care status 492585199 Z34.83 [id number] MD [facility] [address],[place] [address] 05/28/2025 19:34:07 05/29/2025 08:57:04 Cholestasis 69907355 K83.1 [id number] MD [facility] [address],[place] [address] 05/29/2025 09:07:37 06/05/2025 10:32:17 Cholestasis of 712305143 O26.643 [id number] [id number] MD [facility] [address],[place] [address] 06/15/2025 15:38:02 06/15/2025 16:23:27 Cholestasis 27007849 K83.1 [id number] MD [facility] [address],[place] [address] 06/15/2025 15:38:19 06/16/2025 09:41:00 Cholestasis of 857290890 O26.643 s ection following previous section 408587816 O34.219 [id number] MD [facility] [address],[place] [address] 06/15/2025 15:38:32 06/16/2025 09:42:20 Cholestasis of 880981463 O26.643 Z3A.34 87240066 [id number] MD [facility] [address],[place] [address] 06/22/2025 15:23:07 06/25/2025 08:52:33 Cholestasis of 171328296 O26.643 Z3A.35 [id number] MD [facility] [address],[place] [address] 06/22/2025 15:23:28 06/26/2025 08:01:45 Cholestasis of 180115111 O26.643 [id number] MD [facility] [address],[place] [address] 06/22/2025 15:23:37 06/25/2025 08:51:16 care status 189112148 Z34.83 73147520 [id number] MD [facility] [address],[place] [address] 06/29/2025 11:37:49 06/29/2025 17:52:05 Cholestasis of 205343479 O26.643 [id number] [id number] MD [facility] [address],[place] [address] 06/29/2025 11:37:59 06/29/2025 13:27:59 care status 156048633 Z34.83 [id number] MD [facility] [address],[place] [address] 06/29/2025 11:38:08 06/29/2025 13:28:16 Cholestasis of 575764608 O26.643 Z3A.36 [id number] MYLA ESPINOSA MD [facility] [address],[place] [address] 07/06/2025 15:19:23 07/06/2025 15:48:08 Cholestasis of 182691403 O26.643 Z3A.37 [id number] MYLA ESPINOSA MD [facility] [address],[place] [address] 07/06/2025 15:19:33 07/06/2025 16:34:16 Cholestasis 94074529 K83.1 [id number] MYLA ESPINOSA MD [facility] [address],[place] [address] 07/06/2025 15:19:42 07/06/2025 16:29:21 Cholestasis of 041391047 O26.643 53404642 - 37 week delivery Past pregn jason history of section 680214397 Z98.891 35567 - x3- repeat scheduled 07/10 Gestation period, 37 weeks 42210536 Z3A.37 2739042 - continue PNV [id number] MD [facility] [address],[place] [address] 07/10/2025 08:42:57 07/10/2025 10:12:23 [id number] MD [facility] [address],[place] [address] 07/18/2025 17:56:32 07/19/2025 08:59:56 Postoperative visit 834823476 Z48.89 [id number] This patient is a 25-year-ol d female who presents for postop follow-up. She is 1 week postop from a delivery. Her incision is clean dry and intact. She has no complaints . Her bleeding is minimal. She denies any nausea, vomiting, fever, chills. She denies any chest pain or shortness of breath. Her baby is doing well. Her mood is good. [id number] Isaiah Cordero MD [facility] [address] [address] 08/13/2025 14:15:16 08/13/2025 15:07:38 care status 269110576 Z39.2 [id number] This patient is a 35-year-ol d female who presents for care. Her baby is bREAST feeding. Her baby is doing very well. Her mood is good. She has not had intercours e. Her bleeding is resolved. contracept ion - salpingect david. Health Concerns Section Related Observation LastModified by Organization Detai ls LastModified Time None Recorded Concern Status LastModified by Organization Details LastModified Time None Recorded Advance Directives Directive None Recorded Payers Insurance Date Sequence Insurance Name Policy Number Policy Elizondo Covered Member ID Elizondo Member ID Guarantor Name 08/19/2025 1 [facility] ON OR AFTER 04/17/21 (MEDICAID REPLACEMENT - HMO) Grace Salinas [id number] Grace Salinas Notes Date Note Type Note Provider Name and Address Organization Details Recorded Time 07/06/2025 text/html Generic HPI TemplateReported by Patient MYLA ESPINOSA MD [address], [place], [address], [facility] 07/06/2025 16:28:11 07/18/2025 text/html This patient is a 25-year-old female who presents for postop follow-up. She is 1 week postop from a delivery. Her incision is clean dry and intact. She has no complaints. Her bleeding is minimal. She denies any nausea, vomiting, fever, chills. She denies any chest pain or shortness of breath. Her baby is doing well. Her mood is good. Isaiah Cordero MD [address] [place], [address], [place] [facility] 07/18/2025 18:35:17 08/13/2025 text/html VisitReported by Patient This patient is a 35-year-old female who presents for care. Her baby is bREAST feeding. Her baby is doing very well. Her mood is good. She has not had intercourse. Her bleeding is resolved. contraception - salpingectomy. Berkley hopkins [facility] 08/13/2025 16:35:51 OBGyn Episode Ob Episode Information Episode Created Date Number of Fetuses Patient Bloodtype Patient rh Status Prepregnancy Weight lbs Domestic Partner Domestic Partner Phone Father Name Fabric Inspector Status 02/13/20 1 CLOSED Fetus Data First Name Last Name Admitted to NICU Weight (g) Sex Living Outcome Pediatric Complications Fetus ID Race Codes Race Delivery Type , Spontane ous [id number] Riley Calculation Initial Riley Date Initial Exam Date Initial Exam Provider Initial Ultrasound Date Last Menstrual Period Date Ultra Sound Weeks Gestation 0 Eighteen To Twenty Week Riley Update Ultra Sound Date Fundal Height At Umbil Quickening Date Ultra Sound Latest Weeks Gestation Final Riley Confirmed By Final Riley Confirmed Date Final Riley Date Ultra Sound Latest Days Gestation 0 0 Menstrual History Last Menstrual Date Menses Monthly On Bcp Conception Prior Menses Frequency Hcg Plus Date Menarche Onset Age Delivery Information Delivery Date Delivery Type Labor Anesthesia Weeks Gestation Incision Type Labor Labor Length Hrs Delivered By Post Complications Tubal Sterilization Discharge Date Comments Discharge Information Feeding Method Contraceptive Method Maternal HG B and HCT Levels Ob Episode Information Episode Created Date Number of Fetuses Patient Bloodtype Patient rh Status Prepregnancy Weight lbs Domestic Partner Domestic Partner Phone Father Name Fabric Inspector Status 02/13/20 25 1 A Positive CLOSED Fetus Data First Name Last Name Admitted to NICU Weight (g) Sex Living Outcome Pediatric Complications Fetus ID Race Codes Race Delivery Type 2636.50 35 F true Full Term 92786 Repeat Problems Problem Notes Problem Name Start Date End Date Resolution Snomed Code Not e Cholestasis of 05/11/2025 1523 96912 Past history of ce sarean section 02/12/2025 386432810 X3 Riley Calculation Initial Riley Date Initial Exam Date Initial Exam Provider Initial Ultrasound Date Last Menstrual Period Date Ultra Sound Weeks Gestation 07/18/2025 02/12/2025 10/18/2024 0 Eighteen To Twenty Week Riley Update Ultra Sound Date Fundal Height At Umbil Quickening Date Ultra Sound Latest Weeks Gestation Final Riley Confirmed By Final Riley Confirmed Date Final Riley Date Ultra Sound Latest Days Gestation 03/16/20 25 21 [email or web address] 02/12/2025 07/25/20 25 2 Pre-shyam Flowsheet Flowsheet Date 02/12/2025 Carlin Score Blood Edema Fundus Height Fundus Units Glucose Ketones Leukocytes Nitrite Labor Signs Protein Cervic Dilation Cervic Effacement Cervic Station Type Weight in lbs Pre/Post Dialysis Refused Weight 179.725173455500 BP Diastolic BP Location Tested BP Systolic BP Type 61 L arm 108 sitting Fetus Heart Rate Present A 145 Fetus Movement Comments this patient is a 24-year-ol d multiparous female at 16 weeks' gestation who presents for initial care. She has a history of term 5cesarean X3. Her medical, surgical, obstetric history is unremarkable. She is vaccinated. She was given precautions recommendations for . We talked about vaccines in . Talked about care in detail. She is having genetic testing. She had a normal 12 week ultrasound. To begin routine care. Flowsheet Date 03/16/2025 Carlin Score Blood Edema Fundus Height Fundus Units Glucose Ketones Leukocytes Nitrite Labor Signs Protein Cervic Dilation Cervic Effacement Cervic Station Type Weight in lbs Pre/Post Dialysis Refused BP Diastolic BP Location Tested BP Systolic BP Type Fetus Heart Rate Present Fetus Movement Comments Flowsheet Date 03/16/2025 Carlin Score Blood Edema Fundus Height Fundus Units Glucose Ketones Leukocytes Nitrite Labor Signs Protein Cervic Dilation Cervic Effacement Cervic Station Type Weight in lbs Pre/Post Dialysis Refused Weight 183.332706484034 BP Diastolic BP Location Tested BP Systolic BP Type 74 L arm 115 sitting Fetus Heart Rate Present A 132 Fetus Movement Comments no complaints, no problems, routine care, no contractions, no vaginal bleeding, no loss of fluid, no cramping Flowsheet Date 04/16/2025 Carlin Score Blood Edema Fundus Height Fundus Units Glucose Ketones Leukocytes Nitrite Labor Signs Protein Cervic Dilation Cervic Effacement Cervic Station Type Weight in lbs Pre/Post Dialysis Refused 193.46265548307 BP Diastolic BP Location Tested BP Systolic BP Type 72 L arm 113 sitting Fetus Heart Rate Present A 145 Fetus Movement Comments rash on abdomen and legs. Tr eated like polyps. Steroid cream. Otherwise, no complaints, no problems, routine care, no contractions, no vaginal bleeding, no loss of fluid, no cramping Flowsheet Date 05/11/2025 Carlin Score Blood Edema Fundus Height Fundus Units Glucose Ketones Leukocytes Nitrite Labor Signs Protein Cervic Dilation Cervic Effacement Cervic Station Type Weight in lbs Pre/Post Dialysis Refused Weight 196.278023078262 BP Diastolic BP Location Tested BP Systolic BP Type 76 L arm 128 sitting Fetus Heart Rate Present A 148 Present Fetus Movement A Yes Comments pruritus of hands and feet , to treat with ursodiol and to start monitoring, to start testing. To check labs Flowsheet Date 05/21/2025 Carlin Score Blood Edema Fundus Height Fundus Units Glucose Ketones Leukocytes Nitrite Labor Signs Protein Cervic Dilation Cervic Effacement Cervic Station Type Weight in lbs Pre/Post Dialysis Refused BP Diastolic BP Location Tested BP Systolic BP Type Fetus Heart Rate Present Fetus Movement Comments Flowsheet Date 05/28/2025 Carlin Score Blood Edema Fundus Height Fundus Units Glucose Ketones Leukocytes Nitrite Labor Signs Protein Cervic Dilation Cervic Effacement Cervic Station Type Weight in lbs Pre/Post Dialysis Refused Weight 202.350560878137 BP Diastolic BP Location Tested BP Systolic BP Type 66 L arm 98 sitting Fetus Heart Rate Present A 142 Present Fetus Movement A Yes Comments no complaints, no problems, routine care, no contractions, no vaginal bleeding, no loss of fluid, no cramping Flowsheet Date 05/28/2025 Carlin Score Blood Edema Fundus Height Fundus Units Glucose Ketones Leukocytes Nitrite Labor Signs Protein Cervic Dilation Cervic Effacement Cervic Station Type Weight in lbs Pre/Post Dialysis Refused BP Diastolic BP Location Tested BP Systolic BP Type Fetus Heart Rate Present Fetus Movement Comments Flowsheet Date 06/15/2025 Carlin Score Blood Edema Fundus Height Fundus Units Glucose Ketones Leukocytes Nitrite Labor Signs Protein Cervic Dilation Cervic Effacement Cervic Station Type Weight in lbs Pre/Post Dialysis Refused Weight 202.316947659750 BP Diastolic BP Location Tested BP Systolic BP Type 76 L arm 115 sitting Fetus Heart Rate Present Fetus Movement Comments Flowsheet Date 06/15/2025 Carlin Score Blood Edema Fundus Height Fundus Units Glucose Ketones Leukocytes Nitrite Labor Signs Protein Cervic Dilation Cervic Effacement Cervic Station Type Weight in lbs Pre/Post Dialysis Refused Weight 202.481742487738 BP Diastolic BP Location Tested BP Systolic BP Type 76 L arm 115 sitting Fetus Heart Rate Present A 144 Fetus Movement A Yes Comments no complaints, no problems, routine care, no contractions, no vaginal bleeding, no loss of fluid, no cramping Flowsheet Date 06/15/2025 Carlin Score Blood Edema Fundus Height Fundus Units Glucose Ketones Leukocytes Nitrite Labor Signs Protein Cervic Dilation Cervic Effacement Cervic Station Type Weight in lbs Pre/Post Dialysis Refused BP Diastolic BP Location Tested BP Systolic BP Type Fetus Heart Rate Present Fetus Movement Comments Flowsheet Date 06/22/2025 Carlin Score Blood Edema Fundus Height Fundus Units Glucose Ketones Leukocytes Nitrite Labor Signs Protein Cervic Dilation Cervic Effacement Cervic Station Type Weight in lbs Pre/Post Dialysis Refused BP Diastolic BP Location Tested BP Systolic BP Type Fetus Heart Rate Present Fetus Movement Comments Flowsheet Date 06/22/2025 Carlin Score Blood Edema Fundus Height Fundus Units Glucose Ketones Leukocytes Nitrite Labor Signs Protein Cervic Dilation Cervic Effacement Cervic Station Type Weight in lbs Pre/Post Dialysis Refused BP Diastolic BP Location Tested BP Systolic BP Type Fetus Heart Rate Present Fetus Movement Comments Flowsheet Date 06/22/2025 Carlin Score Blood Edema Fundus Height Fundus Units Glucose Ketones Leukocytes Nitrite Labor Signs Protein Cervic Dilation Cervic Effacement Cervic Station Type Weight in lbs Pre/Post Dialysis Refused 202.892162633094 BP Diastolic BP Location Tested BP Systolic BP Type 76 L arm 131 sitting Fetus Heart Rate Present A 145 Fetus Movement A Yes Comments no complaints, no problems, routine care, no contractions, no vaginal bleeding, no loss of fluid, no cramping Flowsheet Date 06/29/2025 Carlin Score Blood Edema Fundus Height Fundus Units Glucose Ketones Leukocytes Nitrite Labor Signs Protein Cervic Dilation Cervic Effacement Cervic Station Type Weight in lbs Pre/Post Dialysis Refused Weight 205.101185311144 BP Diastolic BP Location Tested BP Systolic BP Type 71 L arm 113 sitting Fetus Heart Rate Present Fetus Movement A Yes Comments Flowsheet Date 06/29/2025 Carlin Score Blood Edema Fundus Height Fundus Units Glucose Ketones Leukocytes Nitrite Labor Signs Protein Cervic Dilation Cervic Effacement Cervic Station 1cm 20% -4 Type Weight in lbs Pre/Post Dialysis Refused 205.451288976334 BP Diastolic BP Location Tested BP Systolic BP Type 71 L arm 113 sitting Fetus Heart Rate Present A 144 Fetus Movement A Yes Comments no complaints, no problems, routine care, no contractions, no vaginal bleeding, no loss of fluid, no cramping Flowsheet Date 06/29/2025 Carlin Score Blood Edema Fundus Height Fundus Units Glucose Ketones Leukocytes Nitrite Labor Signs Protein Cervic Dilation Cervic Effacement Cervic Station Type Weight in lbs Pre/Post Dialysis Refused BP Diastolic BP Location Tested BP Systolic BP Type Fetus Heart Rate Present Fetus Movement Comments Flowsheet Date 07/06/2025 Carlin Score Blood Edema Fundus Height Fundus Units Glucose Ketones Leukocytes Nitrite Labor Signs Protein Cervic Dilation Cervic Effacement Cervic Station Type Weight in lbs Pre/Post Dialysis Refused BP Diastolic BP Location Tested BP Systolic BP Type Fetus Heart Rate Present Fetus Movement Comments Flowsheet Date 07/06/2025 Carlin Score Blood Edema Fundus Height Fundus Units Glucose Ketones Leukocytes Nitrite Labor Signs Protein Cervic Dilation Cervic Effacement Cervic Station Type Weight in lbs Pre/Post Dialysis Refused 205.638615894593 BP Diastolic BP Location Tested BP Systolic BP Type 69 L arm 104 sitting Fetus Heart Rate Present Fetus Movement A Yes Comments Flowsheet Date 07/06/2025 Carlin Score Blood Edema Fundus Height Fundus Units Glucose Ketones Leukocytes Nitrite Labor Signs Protein Cervic Dilation Cervic Effacement Cervic Station Type Weight in lbs Pre/Post Dialysis Refused 205.281080531798 BP Diastolic BP Location Tested BP Systolic BP Type 69 L arm 104 sitting Fetus Heart Rate Present A 150 Fetus Movement A Yes Comments Doing well, no issues. RCS s cheduled for 07/10. Itching improved, mostly at night. EFW 13%, BPP 07/27. Labor precautions reviewed. Flowsheet Date 07/10/2025 Carlin Score Blood Edema Fundus Height Fundus Units Glucose Ketones Leukocytes Nitrite Labor Signs Protein Cervic Dilation Cervic Effacement Cervic Station Type Weight in lbs Pre/Post Dialysis Refused BP Diastolic BP Location Tested BP Systolic BP Type Fetus Heart Rate Present Fetus Movement Comments Flowsheet Date 07/18/2025 Carlin Score Blood Edema Fundus Height Fundus Units Glucose Ketones Leukocytes Nitrite Labor Signs Protein Cervic Dilation Cervic Effacement Cervic Station Type Weight in lbs Pre/Post Dialysis Refused Weight 195.637688503751 BP Diastolic BP Location Tested BP Systolic BP Type 89 L arm 139 sitting Fetus Heart Rate Present Fetus Movement Comments Menstrual History Last Menstrual Date Menses Monthly On Bcp Conception Prior Menses Frequency Hcg Plus Date Menarche Onset Age 0110/18/2024 Delivery Information Delivery Date Delivery Type Labor Anesthesia Weeks Gestation Incision Type Labor Labor Length Hrs Delivered By Post Complications Tubal Sterilization Discharge Date Comments 5 37.6 Discharge Information Feeding Method Contraceptive Method Maternal HG B and HCT Levels Ob Episode Information Episode Created Date Number of Fetuses Patient Bloodtype Patient rh Status Prepregnancy Weight lbs Domestic Partner Domestic Partner Phone Father Name Fabric Inspector Status 02/13/20 25 1 CLOSED Fetus Data First Name Last Name Admitted to NICU Weight (g) Sex Living Outcome Pediatric Complications Fetus ID Race Codes Race Delivery Type 3175.14 4 F Full Term [id number] Repeat Riley Calculation Initial Riley Date Initial Exam Date Initial Exam Provider Initial Ultrasound Date Last Menstrual Period Date Ultra Sound Weeks Gestation 0 Eighteen To Twenty Week Riley Update Ultra Sound Date Fundal Height At Umbil Quickening Date Ultra Sound Latest Weeks Gestation Final Riley Confirmed By Final Riley Confirmed Date Final Riley Date Ultra Sound Latest Days Gestation 0 0 Menstrual History Last Menstrual Date Menses Monthly On Bcp Conception Prior Menses Frequency Hcg Plus Date Menarche Onset Age Delivery Information Delivery Date Delivery Type Labor Anesthesia Weeks Gestation Incision Type Labor Labor Length Hrs Delivered By Post Complications Tubal Sterilization Discharge Date Comments 1 39 Discharge Information Feeding Method Contraceptive Method Maternal HG B and HCT Levels Ob Episode Information Episode Created Date Number of Fetuses Patient Bloodtype Patient rh Status Prepregnancy Weight lbs Domestic Partner Domestic Partner Phone Father Name Fabric Inspector Status 02/13/20 25 1 CLOSED Fetus Data First Name Last Name Admitted to NICU Weight (g) Sex Living Outcome Pediatric Complications Fetus ID Race Codes Race Delivery Type 2721.55 2 F Full Term [id number] Primary Riley Calculation Initial Riley Date Initial Exam Date Initial Exam Provider Initial Ultrasound Date Last Menstrual Period Date Ultra Sound Weeks Gestation 0 Eighteen To Twenty Week Riley Update Ultra Sound Date Fundal Height At Umbil Quickening Date Ultra Sound Latest Weeks Gestation Final Riley Confirmed By Final Riley Confirmed Date Final Riley Date Ultra Sound Latest Days Gestation 0 0 Menstrual History Last Menstrual Date Menses Monthly On Bcp Conception Prior Menses Frequency Hcg Plus Date Menarche Onset Age Delivery Information Delivery Date Delivery Type Labor Anesthesia Weeks Gestation Incision Type Labor Labor Length Hrs Delivered By Post Complications Tubal Sterilization Discharge Date Comments 8 39 Discharge Information Feeding Method Contraceptive Method Maternal HG B and HCT Levels Ob Episode Information Episode Created Date Number of Fetuses Patient Bloodtype Patient rh Status Prepregnancy Weight lbs Domestic Partner Domestic Partner Phone Father Name Fabric Inspector Status 02/13/20 25 1 CLOSED Fetus Data First Name Last Name Admitted to NICU Weight (g) Sex Living Outcome Pediatric Complications Fetus ID Race Codes Race Delivery Type 2721.55 2 F Full Term [id number] Vaginal Delivery Riley Calculation Initial Riley Date Initial Exam Date Initial Exam Provider Initial Ultrasound Date Last Menstrual Period Date Ultra Sound Weeks Gestation 0 Eighteen To Twenty Week Riley Update Ultra Sound Date Fundal Height At Umbil Quickening Date Ultra Sound Latest Weeks Gestation Final Riley Confirmed By Final Riley Confirmed Date Final Riley Date Ultra Sound Latest Days Gestation 0 0 Menstrual History Last Menstrual Date Menses Monthly On Bcp Conception Prior Menses Frequency Hcg Plus Date Menarche Onset Age Delivery Information Delivery Date Delivery Type Labor Anesthesia Weeks Gestation Incision Type Labor Labor Length Hrs Delivered By Post Complications Tubal Sterilization Discharge Date Comments 2 39 Discharge Information Feeding Method Contraceptive Method Maternal HG B and HCT Levels
--- OUTSIDE RECORDS SUMMARY | 2025-08-22 02:17 | XMS_ITS | Clinical Summary ---
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 No 05/21/2023 Social Connection and Isolation Panel Answer Date Recorded In a typical week, how many times do you talk on the phone with family, friends, or neighbors? More than three times a week 05/21/2023 How often do you get togethe r with friends or relatives? Once a week 05/21/2023 How often do you attend [facility] or denominational services? Never 05/21/2023 Do you belong to any clubs o r organizations such as hinduism groups, unions, fraternal or athletic groups, or [...] and heating? Not hard at all 05/21/2023 [facility] - Occupational Stress [...] place to sleep or slept in a [place] [facility] facility (including now)? No 05/21/2023 Comments Yes Sex [...] history exists COVID-19 Vaccine ( season) 2025 Influenza Adult (#1) 2025 08/28/2011, 08/08/2009, 08/08/2009, Additional history exists RSV Immunization or 60+ Years (1 - 1-dose 75+ series) 2074 Hepatitis B Vaccines Completed 07/15/2000, 1999, 1999 HPV Vaccines Completed 05/09/2013, 10/20, 06/03/2010 Hepatitis A Vaccines Completed 05/09/2013, 06/03/20 10 Meningococcal Vaccine Completed 05/25/2016, 011 Pneumococcal Vaccine: Pediatrics (0 to 5 Years) and At-Risk Patients (6 to 49 Years) Aged Out No longer eligible based on patient's age to complete this topic RSV Immunizations Under 20 Months Aged Out No longer eligible based on patient's age to complete this topic Insurance Advance Directives Documents on File Type Date Recorded 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 Expl anation Advance Directives and Living Will 06/21/2018 12:00 AM ADVANCED DIRECTIVES * Full Code (Latest Code Status on File) Date Activated Date Inactivated Comments 05/21/2023 9:18 AM 05/23/2023 11:43 AM * Full Code Date Activated Date Inactivated Comments 05/21/2023 5:53 AM 05/21/2023 6:01 AM * Full Code Date Activated Date Inactivated Comments 04/16/2021 9:27 AM 04/18/2021 12:43 PM Care Teams [employer] Fre[employer] Car Cleaner Relationship Specialty Start Date End Date Alycia Rodríguez MD [id number] [place] [address] PCP - General FAMILY PRACTICE 05/21/23
[2025-08-22 09:51] VITALS: BP 137/97; PULSE 60; TEMP 36.1; O2SAT 93; BMI 36.5
--- NOTE | 2025-08-22 09:52 | PM.IMHP ---
H&P: HPI History of Present Illness Date/Time: 08/22/25 09:52 Chief Complaint: Unwanted fertility Narrative: This patient is a 25-year-old female, multiparous, has unwanted fertility, desires sterilization, we have agreed to perform a laparoscopic bilateral salpingectomy. She understands risks, benefits, and alternatives. She has completed informed consent process and is ready to proceed. The patient understands the details of the procedure. The procedure has been explained in detail. She understands the risks. She understands that injuries may occur that result in hospitalization, more surgery, and severe illness. She understands risk of hemorrhage and infection. She denies any chest pain or shortness of breath. She denies any nausea, vomiting, fever, chills. Review of Systems Review of Systems: All systems reviewed & are unremarkable except as noted in HPI and below Constitutional: Constitutional: Denies chills, Denies fatigue, Denies fever(s) and Denies weakness Eyes: Eyes: Denies blurry vision, Denies change in vision, Denies loss of peripheral vision, Denies loss of vision, Denies other visual disturbances and Denies eye pain ENT: Denies vertigo, Denies dizziness, Denies hearing loss, Denies mouth pain, Denies nasal obstruction, Denies neck mass and Denies neck pain Cardiovascular: Cardiovascular: Denies chest pain, Denies diaphoresis, Denies syncope, Denies leg edema and Denies dyspnea Respiratory: Respiratory: Denies chest congestion, Denies cough, Denies hemoptysis, Denies dyspnea and Denies wheezing Gastrointestinal: Gastrointestinal: Denies abdominal pain, Denies constipation, Denies diarrhea, Denies nausea and Denies vomiting Genitourinary: Genitourinary: Denies hematuria, Denies change in libido, Denies nocturia, Denies genital lesions, Denies flank pain and Denies urinary urgency Musculoskeletal: Musculoskeletal: Denies abnormal gait, Denies back pain, Denies myalgias, Denies arthralgias, Denies joint swelling, Denies muscle weakness and Denies neck pain Integumentary/Breasts: Skin/Breast: Denies swelling, Denies breast pain, Denies breast mass, Denies dry skin, Denies nipple discharge, Denies unusual bruising and Denies jaundice Neurologic: Denies Neuro-related abnormal movements, Denies Abnormal speech present, Denies abnormal gait, Denies behavioral changes, Denies confusion, Denies vertigo, Denies dizziness, Denies syncope, Denies loss of vision, Denies memory loss, Denies convulsions and Denies weakness Psychiatric: Psychiatric: Denies abnormal sleep pattern, Denies behavioral changes, Denies change in libido, Denies confusion, Denies depression, Denies anhedonia and Denies memory loss Endocrine: Endocrine: Reports no additional endocrine complaints, Denies change in libido and Denies fatigue Hematologic/Lymphatic: Hematologic/Lymphatic: Reports no additional hematologic/lymphatic complaints Allergic/Immunologic: Allergic/Immunologic: Reports no additional allergic/immunologic complaints and Denies wheezing REPLACED BY [facility] Family History Family History Other No pertinent family history Social History Social History Years smoked: 5 Smoking status: Former smoker Tobacco type: cigarettes Substance use: current Substance use type: marijuana Other substance usage details: 2-3x/day Lack of Transportation: No Lack of Food: Never True Current Housing: I Have Housing Concerned About Future Housing: No Difficulty Paying Gas/Electric Bills: No Difficulty Paying for Meds: No Currently Unemployed: No Education: High School Diploma/GED Difficulty w/ Childcare or Family Care: No Living arrangements: with family Spiritual care concerns: No Meds Home Medications and Allergies Home Medications ?Medication ?Instructions ?Recorded ?Confirmed ?Type vit no.95-ferrous 1 tablet PO DAILY 07/09/25 08/14/25 History fumarate 28 mg-folic acid 800 mcg tablet () hydrocodone 5 mg-acetaminophen 325 1 - 2 tablet PO Q6H PRN pain #25 07/12/25 08/14/25 Rx mg tablet tabs ferrous sulfate 325 mg (65 mg 325 mg PO DAILY 08/14/25 08/14/25 History iron) tablet (Terry-Time) Allergies Allergy/AdvReac Type Severity Reaction Status Date / Time metoclopramide (From Reglan) Allergy Severe Vomiting Verified 08/14/25 15:30 latex Allergy Intermediate Rash Verified 08/14/25 15:30 Exam Const: General: cooperative, healthy appearing, comfortable and no acute distress Orientation/consciousness: oriented to person, oriented to place and oriented to time HENMT: Head: normal to inspection Ears: external ears normal Face/Nose/Sinus: Normal external nose present and normal facial exam Face and sinus: normal facial exam Eyes: General: appearance normal, both eyes and all related structures Neck: Neck: normal visual inspection, trachea midline and supple Resp: Auscultation: clear to auscultation bilaterally, no crackles, no rales, no rhonchi and no wheezes Cardio: Rate: regular rate Rhythm: regular rhythm Heart sounds: no click, no murmurs and no rubs GI: GI Palp: No abdominal tenderness, No Soft to palpation, No Tenderness to palpation present (GI) and No Palpable mass present Auscultation: normal bowel sounds Skin: General skin exam: normal color and no rashes or lesions noted Neuro: General: oriented to person, oriented to place and oriented to time Extrem: General: normal to inspection, no joint enlargement, no clubbing, cyanosis or edema, no pedal edema and no calf tenderness Psych: Appearance: grossly normal Mental Status: mental status grossly normal Speech and movement: Normal speech and movement present Assessment and Plan Assessment and plan (1) Unwanted fertility: Code(s): Z30.09 - Encounter for other general counseling and advice on contraception Status: Acute Plan This patient is a 25-year-old female, multiparous, has unwanted fertility, desires sterilization, we have agreed to perform a laparoscopic bilateral salpingectomy. She understands risks, benefits, and alternatives. She has completed informed consent process and is ready to proceed.
--- NOTE | 2025-08-22 09:55 | WPDHPUPDATE1 ---
History and Physical Update Update Date/Time: 08/22/25 09:55 History and Physical has been reviewed, including an updated exam of the patient. There are NO changes in the patient's condition. Risks, benefits, and alternatives have been discussed and questions answered. Patient agrees to proceed with procedure.
[2025-08-22] MEDS: LACTATED RINGERS 1,000 ML 30 ML IV CONT (10:00)
[2025-08-22] MEDS: ACETAMINOPHEN 500 MG TABLET 1000 MG PO (10:02)
[2025-08-22] MEDS: KETOROLAC 15 MG/ML VIAL (*BKC) IV PUSH (10:02)
--- NOTE | 2025-08-22 10:17 | P.PNAN_ITS ---
Anes - Initial Pre Proc Eval Procedure: Operation Date: 08/22/25 10:30 Proposed Procedures p Laparoscopic Bilateral Salpingectomy - Isaiah Shultz MD Date/Time: 08/22/25 10:17 Surgeon: Isaiah Shultz MD Pre Op Diagnosis: Desire Sterilization Patient Data Age: 25 Gender: F Height: 1.57 m Weight: 90.5 kg Last Vital Signs Temp 36.1 C L 08/22/25 09:51 Pulse 60 08/22/25 09:51 BP 137/97 H 08/22/25 09:51 Pulse Ox 93 08/22/25 09:51 O2 Del Method Room Air 08/22/25 09:51 Allergies Allergy/AdvReac Type Severity Reaction Status Date / Time metoclopramide (From Reglan) Allergy Severe Vomiting Verified 08/14/25 15:30 latex Allergy Intermediate Rash Verified 08/14/25 15:30 Home Medications ?Medication ?Instructions ?Recorded ?Confirmed ?Type vit no.95-ferrous 1 tablet PO DAILY 07/09/25 08/14/25 History fumarate 28 mg-folic acid 800 mcg tablet () hydrocodone 5 mg-acetaminophen 325 1 - 2 tablet PO Q6H PRN pain #25 07/12/25 08/14/25 Rx mg tablet tabs ferrous sulfate 325 mg (65 mg 325 mg PO DAILY 08/14/25 08/14/25 History iron) tablet (Terry-Time) Patient hx anesthesia problems: none Family hx anesthesia problems: none Results Review: All pre-operative results and documents have been reviewed as part of the pre- operative evaluation. PMFSH Family History Family History Other No pertinent family history Social History Social History Years smoked: 5 Smoking status: Former smoker Tobacco type: cigarettes Substance use: current Substance use type: marijuana Other substance usage details: 2-3x/day Lack of Transportation: No Lack of Food: Never True Current Housing: I Have Housing Concerned About Future Housing: No Difficulty Paying Gas/Electric Bills: No Difficulty Paying for Meds: No Currently Unemployed: No Education: High School Diploma/GED Difficulty w/ Childcare or Family Care: No Living arrangements: with family Spiritual care concerns: No Anes - Eval Final PreProcedure Day of Procedure 08/22/25 10:17 Patient weight: obese Heart: regular rate and rhythm Lungs: clear to auscultation Airway: Mallampati scale class II Neurological: alert and oriented Last oral intake: >/= 8 hours ASA classification: II Emergent: no Anesthetic plan: proceed Anesthesia type and monitoring: general ETT and standard monitoring Results Review: All pre-operative results and documents have been reviewed as part of the pre- operative evaluation. Informed Consent: The patient's anesthetic plan and its attendant risks and benefits were discussed with the patient/family/POA. Questions were solicited and answers provided to the satisfaction of the patient/family/POA.
[2025-08-22 11:25] VITALS: BP 116/73; PULSE 79; RESP 16; TEMP 36.9; O2SAT 99
--- NOTE | 2025-08-22 11:27 | P.OP_ITS ---
Procedure Note - Detailed Date of Procedure 08/22/25 Pre-op Diagnosis Desire Sterilization Post-op Diagnosis Same Procedure Performed Laparoscopic bilateral salpingectomy, adhesiolysis -15 Surgeon Isaiah Shultz MD Anesthesia General Indications Unwanted fertility Findings Normal pelvic anatomy, adhesions between the omentum in the anterior abdominal wall. Description of Procedure The patient was taken the operating room. She was prepped and draped in the dorsal lithotomy position after induction of general anesthesia. A 5 mm skin incision was made in the left upper quadrant of the abdominal skin. A 5 mm trocar was inserted the intra-abdominal cavity under direct visualization of the scope. Pneumoperitoneum was achieved. A 5 mm trocar was inserted in the left lower quadrant identical fashion. A 5 mm infraumbilical trocar was inserted in identical fashion as well. 50 minutes of adhesiolysis was performed. There was adherence between the omentum in the infraumbilical area of the anterior ab dominal wall. Was with LigaSure cautery.. The bilateral fallopian tubes were removed. This was done by using a LigaSure cautery. The mesosalpinx adjacent to the tube was cauterized transected with LigaSure. This was initiated in the area the ovary and in a stepwise fashion moved medially to the area of the cornu of the uterus. Once there the fallopian tube was cauterized and transected. This was done in identical fashion on each side. The fallopian tubes were taken out through the left lower quadrant trocar site. The pneumoperitoneum was reduced. The trocars removed. The skin was closed with subcuticular 4 Monocryl and covered with Dermabond. She was taken to cover stable condition. Sponge lap and needle counts were correct x2. Estimated Blood Loss 5 Drains No Packing No Pathology Yes Complications No immediate complications Condition Stable Disposition PACU
[2025-08-22 12:11] VITALS: BP 122/69; PULSE 59; RESP 20
[2025-08-22 12:40] VITALS: BP 120/72; PULSE 60; RESP 20
[2025-08-22 13:10] VITALS: BP 118/70; PULSE 65; RESP 20
--- NOTE | 2025-08-22 14:21 | SUR.PHASEII ---
1310 - see discharge instructions per paper charting due to downtime
== END 2025-08-22 13:15 | disposition home or self-care (01) ==
PROVIDERS: Visit Provider Obstetrics & Gynecology
PROC: (CPT 49320; principal; 2025-08-22 10:30)
DX: Z30.2 Encounter for sterilization (principal); N83.8 Other noninflammatory disorders of ovary, fallopian tube and broad ligament; N73.6 Female pelvic peritoneal adhesions (postinfective); G89.18 Other acute postprocedural pain; F12.90 Cannabis use, unspecified, uncomplicated; E66.9 Obesity, unspecified; Z68.36 Body mass index [BMI] 36.0-36.9, adult; Z79.891 Long term (current) use of opiate analgesic; Z87.891 Personal history of nicotine dependence
CPT/HCPCS: 58661; 88302; A9270; J1100; J1885; J2003; J2250; J2405; J2704; J3010; J7120